=== PATIENT | male | born 1950 | race Caucasian/White ===

== ENCOUNTER 2017-11-12 14:43 | Emergency (ER) | payer OTHER, MEDICARE, SELFPAY | END 2017-11-12 18:06 | disposition home or self-care (01) | PROVIDERS: Emergency Provider Internal Medicine; Family Provider Family Medicine; PCP Family Medicine; Visit Provider Internal Medicine | DX: S46.812A Strain of other muscles, fascia and tendons at shoulder and upper arm level, left arm, initial encounter (principal); S13.4XXA Sprain of ligaments of cervical spine, initial encounter; V89.2XXA Person injured in unspecified motor-vehicle accident, traffic, initial encounter | CPT/HCPCS: 70450; 73030; 99284 ==

== ENCOUNTER → 2020-05-09 11:24 | Outpatient (CLI) | payer MEDICARE, OTHER, SELFPAY ==
[2020-05-09 13:51] LABS: Prostate Specific Antigen 2.88 ng/mL (0.10-4.00)
== END ==
PROVIDERS: Family Provider Family Medicine; PCP Family Medicine; Referring Provider Family Medicine; Visit Provider Specialist
DX: R97.20 Elevated prostate specific antigen [PSA] (principal)
CPT/HCPCS: 36415; 84153

== ENCOUNTER → 2021-01-28 13:32 | Outpatient (CLI) | payer MEDICARE, OTHER, SELFPAY | PROVIDERS: Family Provider Family Medicine; PCP Family Medicine; Referring Provider Family Medicine; Visit Provider Family Medicine | DX: I87.2 Venous insufficiency (chronic) (peripheral) (principal); L97.811 Non-pressure chronic ulcer of other part of right lower leg limited to breakdown of skin; L08.9 Local infection of the skin and subcutaneous tissue, unspecified | CPT/HCPCS: 11042; 87070; 87075; 87205; 99204; 99213 ==

== ENCOUNTER → 2021-01-31 14:53 | Outpatient (CLI) | payer MEDICARE, OTHER, SELFPAY | PROVIDERS: Family Provider Family Medicine; PCP Family Medicine; Referring Provider Family Medicine; Visit Provider Family Medicine | DX: I87.2 Venous insufficiency (chronic) (peripheral) (principal); L97.811 Non-pressure chronic ulcer of other part of right lower leg limited to breakdown of skin; R60.0 Localized edema | CPT/HCPCS: 29580 ==

== ENCOUNTER → 2021-02-06 09:31 | Outpatient (CLI) | payer MEDICARE, OTHER, SELFPAY | PROVIDERS: Family Provider Family Medicine; PCP Family Medicine; Referring Provider Family Medicine; Visit Provider Family Medicine | DX: I87.2 Venous insufficiency (chronic) (peripheral) (principal); L97.811 Non-pressure chronic ulcer of other part of right lower leg limited to breakdown of skin; L08.9 Local infection of the skin and subcutaneous tissue, unspecified; R60.0 Localized edema | CPT/HCPCS: 97597; 99212; 99213 ==

== ENCOUNTER → 2021-02-13 11:23 | Outpatient (CLI) | payer MEDICARE, OTHER, SELFPAY | PROVIDERS: Family Provider Family Medicine; PCP Family Medicine; Referring Provider Family Medicine; Visit Provider Family Medicine | DX: I87.2 Venous insufficiency (chronic) (peripheral) (principal); L97.811 Non-pressure chronic ulcer of other part of right lower leg limited to breakdown of skin | CPT/HCPCS: 97597 ==

== ENCOUNTER → 2021-02-20 09:51 | Outpatient (CLI) | payer MEDICARE, OTHER, SELFPAY ==
[2021-02-20 13:37] LABS: COVID19 -Nasal RAPID Negative (Negative)
== END ==
PROVIDERS: PCP Family Medicine; Visit Provider Specialist
DX: Z20.822 Contact with and (suspected) exposure to COVID-19 (principal)
CPT/HCPCS: 87635; C9803

== ENCOUNTER → 2021-02-20 13:29 | Outpatient (CLI) | payer MEDICARE, OTHER, SELFPAY | PROVIDERS: PCP Family Medicine; Referring Provider Family Medicine; Visit Provider Family Medicine | DX: I87.2 Venous insufficiency (chronic) (peripheral) (principal); L97.811 Non-pressure chronic ulcer of other part of right lower leg limited to breakdown of skin; R60.0 Localized edema; Z20.822 Contact with and (suspected) exposure to COVID-19 | CPT/HCPCS: 29580; 87635; 99213; C9803 ==

== ENCOUNTER 2021-02-21 09:43 | Day surgery (SDC) | payer MEDICARE, OTHER, SELFPAY ==
--- NOTE | 2021-02-21 | PATH_ITS ---
[facility] Accession Number: [id number] . 01 Material submitted: . body - 45 CM . 01 Clinical history: . SDC . 02 Diagnosis: 45 cm: Portions of tubular adenoma x5. MRV 02/25/2021 1353 Local . 02 Electronically signed: . Jayda Nichols MD, Pathologist NPI- [id number] . 01 Gross description: . 45 CM: Received in formalin are multiple fragment(s) of sepulveda, soft tissue measuring 2.2 x 0.4 x 0.1 cm in aggregate submitted entirely in 1 cassette(s) /RAMONA 02/22/2021 0723 Local . 02 Pathologist provided ICD-10: Z12.11, K63.5 . 02 CPT . 215903 Performed at: 01 [facility] [address] [place] [address], [place], [place] [id number] MD Cecilio Jiménez MD Phone: [phone] Performed at: [address] [facility] [address] [place], [place] [id number] MD Kerry Muro MD Phone: [phone]
[2021-02-21 10:12] VITALS: BP 141/86; PULSE 77; RESP 18; TEMP 37; O2SAT 93; BMI 34.4
--- NOTE | 2021-02-21 10:14 | PM.HP.1 ---
History of Present Illness History of Present Illness Chief complaint: [facility] Narrative: The patient is a gentleman here for screening colonoscopy. Patient History Medical History Arthritis Atrial thrombus (Unknown) BPH (benign prostatic hyperplasia) (Unknown) BPH w urinary obs/LUTS Cardiomegaly (Unknown) Cellulitis (~04/2017) Chronic lymphoid leukemia (~2011) Colon polyps (Unknown) Edema of right lower extremity (04/23/16) Elevated PSA Erectile dysfunction Essential hypertension (08/06/15) History of colonic polyps (08/06/15) Hyperlipidemia (Unknown) Hypertension (Unknown) Insomnia Leg edema, right (Unknown) Lymphoma (~2011) Mixed hyperlipidemia (08/06/15) Non-Hodgkin's lymphoma (08/06/15) Obstructive sleep apnea Osteoarthritis (Unknown) Varicose vein of leg (Unknown) Varicose veins of lower extremity (10/01/17) Surgical History Hx of appendectomy Family & Social History Family History Child Testicular cancer, unspecified laterality Social History: household members spouse Tobacco & Substance use: Smoking Status Former smoker alcohol intake current Meds Home Medications and Allergies Home Medications Medication Instructions Recorded Confirmed Type MULTIVITAMIN (#MULTIPLE VITAMINS) 1 cap PO QDAY #0 04/14/11 02/21/21 History [CALCIUM W/D] 1 tab PO QDAY #0 04/14/11 02/21/21 History [#CO Q-10] 200 mg PO QDAY #0 05/05/12 02/21/21 History aspirin 81 mg tablet,delayed 81 mg PO QDAY #30 tab 04/23/16 02/21/21 History release lysine 500 mg tablet #0 04/23/16 09/14/20 History omega 8-hhp-okg-fish oil 1,000 mg 1,000 mg PO QDAY #0 04/23/16 09/14/20 History (120 mg-180 mg) capsule (Fish Oil) [TUMERIC] 450 mg PO QDAY #0 01/14/17 02/21/21 History valacyclovir 1 gram tablet 2,000 mg PO PRN #60 tab 08/05/17 02/21/21 Rx atorvastatin 20 mg tablet 20 mg PO .qod #45 tab 03/25/18 02/21/21 Rx Resprionics Dreamstation CPAP #1 ea 02/09/19 09/14/20 History sildenafil 100 mg tablet 100 mg PO DAILY PRN #90 tab MDD 05/15/20 02/21/21 Rx 100 mg per day finasteride 5 mg tablet 5 mg PO DAILY #90 tab 08/20/20 02/21/21 Rx tamsulosin 0.4 mg capsule (Flomax) 0.4 mg PO BID #180 cap 09/03/20 02/21/21 Rx Allergies Allergy/AdvReac Type Severity Reaction Status Date / Time No Known Allergies Allergy Uncoded 02/21/21 10:03 Review of Systems Review of Systems Narrative: Patient uses a BiPAP machine due to sleep apnea. No cardiac or pulmonary issues otherwise. No black or bloody bowel movements. No seizures or blackouts. He has elevated cholesterol. Has enlarged prostate. Exam Narrative Exam Narrative: Pleasant cooperative patient no apparent distress. Lungs are clear to auscultation. No rales or rhonchi. Heart regular rate and rhythm no murmur gallop. Abdomen is soft nontender without mass. No obvious hernias. Patient is alert and oriented x3. Assessment & Plan Assessment and plan (1) Screening for colon cancer: Status: Acute Assessment & Plan narrative: I have discussed the procedure and the rationale with the patient including risks of bleeding, perforation which would necessitate a major operation, failure to find remove all lesions and the potential to tattoo. They appeared to understand and wished to proceed.
--- NOTE | 2021-02-21 10:17 | PM.PREOP ---
Pre-operative Note COVID-19 COVID-19 status: Negative Result date/Date tested (Pos, Neg/Pending): 02/20/21 Interval Note History & Physical reviewed/Exam performed by Physician: Yes Changes to H&P: No ASA Class (for procedural sedation): III
[2021-02-21] MEDS: LACTATED RINGERS 1,000 ML 42 ML IV (10:20)
[2021-02-21] MEDS: fentaNYL 250 MCG/5 ML INJ IV (10:23)
[2021-02-21] MEDS: MIDAZOLAM 5 MG/5 ML VIAL IV (10:23)
[2021-02-21 10:55] VITALS: BP 118/71; PULSE 59; RESP 11; TEMP 36.5; O2SAT 96
--- NOTE | 2021-02-21 10:55 | PM.OP.ENDO ---
Operative Date/Time/Diagnoses Date of procedure: 02/21/21 Time of procedure: 10:55 Pre-op diagnosis: Screening for colon cancer. Last exam 10 years ago. Post-op diagnosis: same Procedure & Clinicians Study performed: Colonoscopy with cold biopsy Same procedure as scheduled: Yes Indications: Screening for colon cancer Surgeon: Rian Darnell Procedure Notes SCOAP/Timeout: Performed Procedure in detail: The patient was placed in the left lateral decubitus position and underwent IV sedation directed by the surgeon consisting of fentanyl and Versed. Digital exam was unremarkable except for the possibility of some internal hemorrhoids.. The scope was inserted and advanced through the rectum into the sigmoid, descending, transverse, and ascending colon. Nose lesions were seen on the way in.. The cecum was reached identified by the ileocecal valve and the appendiceal opening. The ileocecal valve was successfully cannulated. The terminal ileum was normal in appearance. The scope was gradually brought out. One Polyp was found at 45 cm and was biopsied and completely removed.. The scope ultimately was retroflexed in the rectum. The appearance was normal. I could not see any large hemorrhoidal disease.. The scope was removed and the patient tolerated the procedure well. Prep was adequate. Scope withdrawal time: 8 minutes(9 total) Sedation minutes: 24 Specimen(s): other (Polyp) Complications: none Post-procedure Recommendations: Colonscopy in 5 years (10 years would be more appropriate if this lesion is not adenomatous(pre cancerous)) Plan for aftercare: Will follow-up with a letter regarding recommendation for your next colonoscopy Follow up: as needed Disposition: PACU
--- NOTE | 2021-02-21 10:59 | SUR.PHASEI ---
Patient sitting up, drinking orange juice without difficulty. Denies nausea. Abdomen soft and non-distended.
[2021-02-21 11:01] VITALS: BP 119/62; PULSE 88; RESP 16; O2SAT 96
[2021-02-21 11:05] VITALS: BP 115/69; PULSE 65; RESP 13; O2SAT 97
== END 2021-02-21 11:31 | disposition home or self-care (01) ==
PROVIDERS: PCP Family Medicine; Referring Provider Specialist; Visit Provider Specialist
PROC: 0DJD8ZZ Inspection of Lower Intestinal Tract, Via Natural or Artificial Opening Endoscopic (ICD-10-PCS; CPT 45378; principal; 2021-02-21 10:45)
DX: Z12.11 Encounter for screening for malignant neoplasm of colon (principal); D12.6 Benign neoplasm of colon, unspecified
CPT/HCPCS: 45380; 99152; J2250; J3010

== ENCOUNTER → 2021-02-27 09:33 | Outpatient (CLI) | payer MEDICARE, OTHER, SELFPAY | PROVIDERS: PCP Family Medicine; Referring Provider Family Medicine; Visit Provider Family Medicine | DX: I87.2 Venous insufficiency (chronic) (peripheral) (principal); R60.0 Localized edema | CPT/HCPCS: 99212; 99213 ==

== ENCOUNTER → 2021-08-12 10:55 | Outpatient (CLI) | payer MEDICARE, OTHER, SELFPAY ==
[2021-08-12 11:49] LABS: COVID19 -Nasal RAPID Negative (Negative)
== END ==
PROVIDERS: PCP Family Medicine; Visit Provider Surgery
DX: Z01.812 Encounter for preprocedural laboratory examination (principal); Z20.822 Contact with and (suspected) exposure to COVID-19
CPT/HCPCS: 87635; C9803

== ENCOUNTER 2021-08-13 07:54 | Day surgery (SDC) | payer MEDICARE, OTHER, SELFPAY ==
[2021-08-12 12:35] VITALS: BMI 34.7
[2021-08-13] VITALS (8 sets, daily range): BP systolic 110–127; BP diastolic 53–76; PULSE 55–61; RESP 14–20; TEMP 36.5–36.7; O2SAT 94–100; BMI 34.5
[2021-08-13] MEDS: LACTATED RINGERS 1,000 ML 42 ML IV (08:24)
--- NOTE | 2021-08-13 08:26 | PM.PREOP ---
Pre-operative Note COVID-19 COVID-19 status: Negative Result date/Date tested (Pos, Neg/Pending): 08/12/21 Criteria for continued procedure: Possibility delay results in more complex future surgery or treatment and Delay expected to result in less-positive ultimate med/surg outcome Interval Note History & Physical reviewed/Exam performed by Physician: Yes Changes to H&P: No ASA Class (for procedural sedation): II
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
[2021-08-13] MEDS: CEFAZOLIN 2 GM/20 ML SYRINGE IV (08:45)
--- NOTE | 2021-08-13 09:02 | SUR.OPER ---
Supine on padded OR bed, head on pillow, arms secured on padded arm boards at <90 degrees abduction, legs uncrossed, safety belt at thigh, tape over blanket over lower legs.
[2021-08-13] MEDS: LIDOCAINE 1% W/EPI 20 ML INJ (09:09)
[2021-08-13] MEDS: BUPIVACAINE 0.25% (PF) VIAL 30 ML INJ (09:10)
--- NOTE | 2021-08-13 09:32 | SUR.OPER ---
LAPAROSCOPY PERFORMED INTEROPERATVIE TO TRY AND VISUALIZE DEFECT
--- NOTE | 2021-08-13 10:01 | PM.OP.1 ---
Operative Date/Time/Diagnoses Date of procedure: 08/13/21 Time of procedure: 10:01 Pre-op diagnosis: Left ventral hernia Post-op diagnosis: other Procedure & Clinicians Procedure: Diagnostic laparoscopy and left abdominal wall exploration Same procedure as scheduled: No Indications: Left abdominal wall mass Surgeon: Warner Schwarz Anesthesia Type: General Operative Notes Estimated Blood Loss (mL): 15 Procedure in detail: The patient was examined in the preoperative holding area and the left abdominal wall mass was identified and marked. Patient was brought to the operating room, placed on the table in the supine position and general anesthesia was induced. Palpation in the region of the mass resulted in the mass decreasing in size suggestive of a hernia that had reduced. The exact location was marked. The abdomen was then prepped and draped in the normal fashion. A 6 cm incision was made over the marked location and cautery was used to divide the subcutaneous adipose tissue to the level of the external oblique aponeurosis. No hernia was found and no subcutaneous masses were identified. Dr. Abdi induced a Valsalva maneuver with no resulting hernia an area. The external oblique was explored several cm in each direction with no findings. Next, we opted to explore the abdomen laparoscopically. A 1 cm infraumbilical incision was created and a Sharon cutdown technique was used to insufflate the abdomen. Camera was inserted and there was no evidence of any injury from the entry. Patient was rotated so that his left side was elevated and the abdomen was explored. There is no ventral hernia defect in the vicinity of the left lateral wall incision or anywhere else in the abdomen. There was no inguinal hernia. We continued to palpate the area with no findings. We then desufflated the abdomen. We closed the infraumbilical fascial incision with 2 interrupted 0 Vicryl sutures. We then closed the skin incision with 4-0 Monocryl. We returned to the left lateral abdominal wall incision. Marcaine was injected into the abdominal wall and subcutaneous adipose tissue. The incision was closed in layers using 3-0 Vicryl interrupted dermal sutures and a running 4 Monocryl subcuticular closure. Steri-Strips were applied. EBL 15 mL Post-operative Condition: stable Disposition: PACU
--- NOTE | 2021-08-13 11:52 | SUR.PHASEII ---
called, note left for Dr. Schwarz to get in touch with . d/c instructions discussed with pt and at the car, all voiced an understanding, belly soft, dressings c/d/i. Pt up to BR, steady when up, pt left in stable condition.
== END 2021-08-13 11:30 | disposition home or self-care (01) ==
PROVIDERS: PCP Family Medicine; Referring Provider Surgery; Visit Provider Surgery
PROC: (CPT 49320; principal; 2021-08-13 08:45)
DX: K43.9 Ventral hernia without obstruction or gangrene (principal)
CPT/HCPCS: 49320; J0690; J2405; J2704; J3010

== ENCOUNTER → 2022-08-11 10:14 | Outpatient (CLI) | payer MEDICARE, OTHER, SELFPAY | PROVIDERS: PCP Family Medicine; Referring Provider Family Medicine; Visit Provider Surgery | DX: I87.2 Venous insufficiency (chronic) (peripheral) (principal); L97.812 Non-pressure chronic ulcer of other part of right lower leg with fat layer exposed; M79.604 Pain in right leg; I83.891 Varicose veins of right lower extremity with other complications | CPT/HCPCS: 11042; 29581; 99213 ==

== ENCOUNTER → 2022-08-14 14:49 | Outpatient (CLI) | payer MEDICARE, OTHER, SELFPAY | PROVIDERS: PCP Family Medicine; Referring Provider Family Medicine; Visit Provider Nurse Practitioner Family | DX: I87.2 Venous insufficiency (chronic) (peripheral) (principal); L97.812 Non-pressure chronic ulcer of other part of right lower leg with fat layer exposed; R60.0 Localized edema | CPT/HCPCS: 29580 ==

== ENCOUNTER → 2022-08-20 14:39 | Outpatient (CLI) | payer MEDICARE, OTHER, SELFPAY | PROVIDERS: PCP Family Medicine; Referring Provider Family Medicine; Visit Provider Surgery | DX: I87.311 Chronic venous hypertension (idiopathic) with ulcer of right lower extremity (principal); L97.812 Non-pressure chronic ulcer of other part of right lower leg with fat layer exposed; M79.604 Pain in right leg | CPT/HCPCS: 11042; 87070; 87075; 87077; 87147; 87186; 87205; 99213 ==

== ENCOUNTER → 2022-08-27 14:40 | Outpatient (CLI) | payer MEDICARE, OTHER, SELFPAY | PROVIDERS: PCP Family Medicine; Referring Provider Family Medicine; Visit Provider Surgery | DX: I87.2 Venous insufficiency (chronic) (peripheral) (principal); L97.812 Non-pressure chronic ulcer of other part of right lower leg with fat layer exposed; R60.0 Localized edema | CPT/HCPCS: 11042 ==

== ENCOUNTER → 2022-09-03 15:10 | Outpatient (CLI) | payer MEDICARE, OTHER, SELFPAY | PROVIDERS: PCP Family Medicine; Referring Provider Family Medicine; Visit Provider Surgery | DX: I87.311 Chronic venous hypertension (idiopathic) with ulcer of right lower extremity (principal); L97.812 Non-pressure chronic ulcer of other part of right lower leg with fat layer exposed; L08.9 Local infection of the skin and subcutaneous tissue, unspecified; I83.891 Varicose veins of right lower extremity with other complications; R60.0 Localized edema | CPT/HCPCS: 11042; 99213 ==

== ENCOUNTER → 2022-09-09 14:45 | Outpatient (CLI) | payer MEDICARE, OTHER, SELFPAY | PROVIDERS: PCP Family Medicine; Referring Provider Family Medicine; Visit Provider Surgery | DX: I87.311 Chronic venous hypertension (idiopathic) with ulcer of right lower extremity (principal); L97.812 Non-pressure chronic ulcer of other part of right lower leg with fat layer exposed; I83.891 Varicose veins of right lower extremity with other complications | CPT/HCPCS: 11042; 99213 ==

== ENCOUNTER → 2022-09-17 14:29 | Outpatient (CLI) | payer MEDICARE, OTHER, SELFPAY | PROVIDERS: PCP Family Medicine; Referring Provider Family Medicine; Visit Provider Surgery | DX: I87.2 Venous insufficiency (chronic) (peripheral) (principal); L97.811 Non-pressure chronic ulcer of other part of right lower leg limited to breakdown of skin | CPT/HCPCS: 97597 ==

== ENCOUNTER → 2022-09-23 14:43 | Outpatient (CLI) | payer MEDICARE, OTHER, SELFPAY | PROVIDERS: PCP Family Medicine; Referring Provider Family Medicine; Visit Provider Surgery | DX: I87.2 Venous insufficiency (chronic) (peripheral) (principal); L97.312 Non-pressure chronic ulcer of right ankle with fat layer exposed; R60.0 Localized edema | CPT/HCPCS: 15271; Q4133 ==

== ENCOUNTER → 2022-09-30 15:01 | Outpatient (CLI) | payer MEDICARE, OTHER, SELFPAY | PROVIDERS: PCP Family Medicine; Referring Provider Family Medicine; Visit Provider Surgery | DX: I87.311 Chronic venous hypertension (idiopathic) with ulcer of right lower extremity (principal); L97.812 Non-pressure chronic ulcer of other part of right lower leg with fat layer exposed; I83.91 Asymptomatic varicose veins of right lower extremity | CPT/HCPCS: 15271; Q4133 ==

== ENCOUNTER → 2022-10-08 13:40 | Outpatient (CLI) | payer MEDICARE, OTHER, SELFPAY | PROVIDERS: PCP Family Medicine; Referring Provider Family Medicine; Visit Provider Surgery | DX: I87.311 Chronic venous hypertension (idiopathic) with ulcer of right lower extremity (principal); I83.891 Varicose veins of right lower extremity with other complications; L97.812 Non-pressure chronic ulcer of other part of right lower leg with fat layer exposed | CPT/HCPCS: 15271; 99213; Q4133 ==

== ENCOUNTER → 2022-10-15 11:37 | Outpatient (CLI) | payer MEDICARE, OTHER, SELFPAY | PROVIDERS: PCP Family Medicine; Referring Provider Family Medicine; Visit Provider Surgery | DX: I87.2 Venous insufficiency (chronic) (peripheral) (principal); L97.812 Non-pressure chronic ulcer of other part of right lower leg with fat layer exposed; R60.0 Localized edema | CPT/HCPCS: 15271; Q4133 ==

== ENCOUNTER → 2022-10-22 13:41 | Outpatient (CLI) | payer MEDICARE, OTHER, SELFPAY | PROVIDERS: PCP Family Medicine; Referring Provider Family Medicine; Visit Provider Surgery | DX: I87.2 Venous insufficiency (chronic) (peripheral) (principal); L97.322 Non-pressure chronic ulcer of left ankle with fat layer exposed | CPT/HCPCS: 99213 ==

== ENCOUNTER → 2022-11-05 13:58 | Outpatient (CLI) | payer MEDICARE, OTHER, SELFPAY | PROVIDERS: PCP Family Medicine; Referring Provider Family Medicine; Visit Provider Surgery | DX: I87.2 Venous insufficiency (chronic) (peripheral) (principal); R60.0 Localized edema | CPT/HCPCS: 99213 ==

== ENCOUNTER → 2023-01-13 16:11 | Outpatient (CLI) | payer MEDICARE, OTHER, SELFPAY ==
--- NOTE | 2023-01-13 16:12 | DI.CT.S_ITS ---
PROCEDURE: CT KIDNEY URETER BLADDER (KUB) INDICATIONS: FLANK PAIN TECHNIQUE: Axial sections were acquired from the lung bases to the pubic symphysis. Coronal and sagittal reformats were performed. For radiation dose reduction, the following was used: automated exposure control, adjustment of mA and/or kV according to patient size. COMPARISON: None. FINDINGS: Image quality: Excellent. Lung bases: Unremarkable. Heart: Cardiomegaly. URINARY: Right Kidney: No stones or hydronephrosis. 7.3 centimeter cystic lesion with a mildly thickened anterior wall. Subcentimeter hyperattenuating lesion on the superior pole of the kidney with indeterminate attenuation (series 2, image 34). Additional non complex cystic lesions. Right Ureter: No hydroureter. Left Kidney: No stones or hydronephrosis. 5.7 centimeter left renal cystic lesion with mildly thickened internal septations. Left Ureter: No hydroureter. Bladder: Normal wall thickness. No stones. ABDOMEN: Liver: Unremarkable. Gallbladder: Contracted. Biliary ducts: Unremarkable. Pancreas: Unremarkable. Spleen: Unremarkable. Adrenal Glands: Unremarkable. Stomach and Bowel: Fecal debris within the small bowel. Appendix is non distended. The normal colonic caliber. Peritoneum: No abnormal intraperitoneal fluid. No free air. Ventral Wall: Tiny umbilical hernia containing fat. Abdominal Nodes: No enlarged retroperitoneal or mesenteric lymph nodes. Vessels: Aorta and inferior vena cava are normal in size. PELVIS: Pelvic Organs: Unremarkable. Pelvic Nodes: Unremarkable. Miscellaneous: No inguinal hernias are seen. Bones: Grade 1 anterolisthesis of L4 on L5. Bilateral sacroiliitis. IMPRESSION: No nephrolithiasis or hydronephrosis. Bilateral renal cystic lesions with mild complexity, which may indicate Bosniak 2 F cystic lesions. Recommend further evaluation with MRI or multiphasic CT (renal mass protocol). Fecal debris within the small-bowel, usually indicating small intestinal bacterial overgrowth versus slow transit. Bilateral sacroiliitis, which is probably degenerative at this age. Dictated by: Fortunato Boothe M.D. on 01/14/2023 at 8:42 Approved by: Fortunato Boothe M.D. on 01/14/2023 at 8:48
== END ==
PROVIDERS: PCP Family Medicine; Referring Provider Family Medicine; Visit Provider Family Medicine
DX: M46.1 Sacroiliitis, not elsewhere classified (principal); N28.9 Disorder of kidney and ureter, unspecified; R10.9 Unspecified abdominal pain
CPT/HCPCS: 74176

== ENCOUNTER → 2023-01-20 17:08 | Outpatient (CLI) | payer MEDICARE, OTHER, SELFPAY ==
--- NOTE | 2023-01-20 | DI.MRI.S_ITS ---
PROCEDURE: MR ABDOMEN RENAL PROTOCOL INDICATIONS: disorder of kidney and ureter, unspecified abdomin TECHNIQUE: Coronal HASTE through abdomen and pelvis; axial 2D FLASH in- and [id number] (with and without fat saturation), and breath-hold T2 FSE from the hepatic dome to the bottom of the kidneys. Coronal HASTE MR urogram of kidneys and bladder. Dynamic coronal VIBE during IV gadolinium administration; postgadolinium axial VIBE or 2D FLASH with fat saturation from the hepatic dome through the kidneys. COMPARISON: [facility], CT, CT KIDNEY URETER BLADDER (KUB), 01/13/2023, 16:28. FINDINGS: Genitourinary system: Bosniak category 1 and 2 cysts visualized within both kidneys. No definite enhancing thick septations or soft tissue nodularity to raise high suspicion for cystic renal neoplasm. The previously demonstrated subcentimeter hyperattenuating lesion at the anterior right upper kidney demonstrates intrinsic T1 hyperintensity but is challenging to view on other sequences, may represent a hemorrhagic/proteinaceous cyst. No definite enhancement identified in this area on subtraction images. Possible right upper kidney hydronephrosis, without proximal hydroureter. No left hydronephrosis. Other solid organs: Simple appearing cyst posterior right lobe of the liver. Spleen, adrenal glands, gallbladder unremarkable. No biliary ductal dilation demonstrated. No dilation of the main pancreatic duct. Nodes and vessels: No abdominal aortic aneurysm. No definite retroperitoneal adenopathy. Bowel and peritoneum: Visualized large and small bowel is non-dilated. No substantial free fluid. Lung bases: No pleural effusion IMPRESSION: 1. Bilateral Bosniak category 1 and 2 renal cysts. No definite highly suspicious features identified. 2. Possible right upper kidney hydronephrosis versus calyceal diverticulum or irregularly shaped renal sinus cyst. No right proximal hydroureter identified. Dictated by: Hany Zarate M.D. on 01/21/2023 at 16:06 Approved by: Hany Zarate M.D. on 01/21/2023 at 16:25
== END ==
PROVIDERS: PCP Family Medicine; Referring Provider Family Medicine; Visit Provider Family Medicine
DX: N28.9 Disorder of kidney and ureter, unspecified (principal); R93.5 Abnormal findings on diagnostic imaging of other abdominal regions, including retroperitoneum; R10.9 Unspecified abdominal pain
CPT/HCPCS: 74183; A9579

== ENCOUNTER → 2024-03-01 15:02 | Outpatient (CLI) | payer MEDICARE, OTHER, SELFPAY | LOC: WC 03-03 15:05 | PROVIDERS: PCP Family Medicine; Referring Provider Family Medicine; Visit Provider Surgery | DX: L97.812 Non-pressure chronic ulcer of other part of right lower leg with fat layer exposed (principal); I87.2 Venous insufficiency (chronic) (peripheral); R60.0 Localized edema; I10 Essential (primary) hypertension; I83.018 Varicose veins of right lower extremity with ulcer other part of lower leg | CPT/HCPCS: 11042; 87070; 87075; 87205; 99213; 99214 ==

== ENCOUNTER → 2024-03-03 15:05 | Outpatient (CLI) | payer MEDICARE, OTHER, SELFPAY | LOC: WC 15:06 | PROVIDERS: PCP Family Medicine; Referring Provider Family Medicine; Visit Provider Physician Assistant | DX: L97.812 Non-pressure chronic ulcer of other part of right lower leg with fat layer exposed (principal); I87.2 Venous insufficiency (chronic) (peripheral); R60.0 Localized edema | CPT/HCPCS: 29581 ==

== ENCOUNTER → 2024-03-08 10:47 | Outpatient (CLI) | payer MEDICARE, OTHER, SELFPAY | LOC: WC 10:49 | PROVIDERS: PCP Family Medicine; Referring Provider Family Medicine; Visit Provider Surgery | DX: I87.2 Venous insufficiency (chronic) (peripheral) (principal); L97.812 Non-pressure chronic ulcer of other part of right lower leg with fat layer exposed; L98.8 Other specified disorders of the skin and subcutaneous tissue; R60.0 Localized edema | CPT/HCPCS: 11042 ==

== ENCOUNTER → 2024-03-15 14:53 | Outpatient (CLI) | payer MEDICARE, OTHER, SELFPAY | LOC: WC 14:58 | PROVIDERS: PCP Family Medicine; Referring Provider Family Medicine; Visit Provider Surgery | DX: L97.812 Non-pressure chronic ulcer of other part of right lower leg with fat layer exposed (principal); I87.2 Venous insufficiency (chronic) (peripheral); R60.0 Localized edema | CPT/HCPCS: 11042 ==

== ENCOUNTER → 2024-03-22 13:48 | Outpatient (CLI) | payer MEDICARE, OTHER, SELFPAY | PROVIDERS: PCP Family Medicine; Referring Provider Family Medicine; Visit Provider Surgery | DX: L97.812 Non-pressure chronic ulcer of other part of right lower leg with fat layer exposed (principal); I87.2 Venous insufficiency (chronic) (peripheral); I83.018 Varicose veins of right lower extremity with ulcer other part of lower leg; R60.0 Localized edema | CPT/HCPCS: 11042 ==

== ENCOUNTER → 2024-03-29 15:38 | Outpatient (CLI) | payer MEDICARE, OTHER, SELFPAY | PROVIDERS: PCP Family Medicine; Referring Provider Family Medicine; Visit Provider Surgery | DX: L97.812 Non-pressure chronic ulcer of other part of right lower leg with fat layer exposed (principal); I83.018 Varicose veins of right lower extremity with ulcer other part of lower leg; I87.2 Venous insufficiency (chronic) (peripheral); R60.0 Localized edema | CPT/HCPCS: 11042; 99213 ==

== ENCOUNTER → 2024-04-05 10:28 | Outpatient (CLI) | payer MEDICARE, OTHER, SELFPAY | PROVIDERS: PCP Family Medicine; Referring Provider Family Medicine; Visit Provider Surgery | DX: L97.812 Non-pressure chronic ulcer of other part of right lower leg with fat layer exposed (principal); I87.2 Venous insufficiency (chronic) (peripheral); R60.0 Localized edema; I83.018 Varicose veins of right lower extremity with ulcer other part of lower leg | CPT/HCPCS: 11042 ==

== ENCOUNTER → 2024-04-12 15:13 | Outpatient (CLI) | payer MEDICARE, OTHER, SELFPAY | LOC: WC 15:17 | PROVIDERS: PCP Family Medicine; Referring Provider Family Medicine; Visit Provider Surgery | DX: R60.0 Localized edema (principal); I87.2 Venous insufficiency (chronic) (peripheral); I83.018 Varicose veins of right lower extremity with ulcer other part of lower leg | CPT/HCPCS: 29581; 99213 ==

== ENCOUNTER → 2024-04-19 15:01 | Outpatient (CLI) | payer MEDICARE, OTHER, SELFPAY | PROVIDERS: PCP Family Medicine; Referring Provider Family Medicine; Visit Provider Surgery | DX: I87.2 Venous insufficiency (chronic) (peripheral) (principal) | CPT/HCPCS: 99212; 99213 ==

== ENCOUNTER 2025-04-10 03:08 | Emergency (ER) | payer MEDICARE, OTHER, SELFPAY ==
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
[2025-04-10 03:18] VITALS: BP 136/69; PULSE 69; RESP 18; TEMP 36.9; O2SAT 98; BMI 32.7
[2025-04-10] MEDS: MORPHINE 4 MG/ML INJ IV (03:51)
--- NOTE | 2025-04-10 04:29 | PC.NURSE ---
swelling and lacs noted to both hands
== END 2025-04-10 04:53 | disposition home or self-care (01) ==
PROVIDERS: Emergency Provider Family Medicine; PCP Family Medicine
DX: S61.452A Open bite of left hand, initial encounter (principal); S61.451A Open bite of right hand, initial encounter; W55.01XA Bitten by cat, initial encounter
CPT/HCPCS: 96374; 99284; J0696; J2272

== ENCOUNTER → 2025-05-11 09:32 | Outpatient (CLI) | payer MEDICARE, OTHER, SELFPAY | LOC: WC 09:39 | PROVIDERS: Family Provider Family Medicine; PCP Family Medicine; Referring Provider Family Medicine; Visit Provider Physician Assistant | DX: S61.452A Open bite of left hand, initial encounter (principal); L98.8 Other specified disorders of the skin and subcutaneous tissue; L53.9 Erythematous condition, unspecified; I87.2 Venous insufficiency (chronic) (peripheral); R60.0 Localized edema; W55.01XA Bitten by cat, initial encounter | CPT/HCPCS: 11042; 99213; 99214 ==